=== PATIENT | female | born 1965 | race American Indian/Alaskan Native ===

== ENCOUNTER 2017-11-23 07:08 | Outpatient (CLI) | payer BC ==
--- NOTE | 2017-11-23 09:16 | Ultrasound Report ---
ULTRASOUND ABDOMEN LIMITED: TECHNIQUE: Transabdominal ultrasound with color Doppler interrogation. HISTORY: Elevated liver function tests. COMPARISON: none. FINDINGS: LIVER: The right hepatic lobe appears mildly enlarged. There is diffuse increased echogenicity consistent with diffuse fatty infiltration. No focal liver mass or surface nodularity is identified. BILIARY SYSTEM: Normal. PANCREAS: Normal. RIGHT KIDNEY: Normal size, contour and position. Normal echogenicity. A 1.5 cm cyst is noted near the superior pole. A 3.1 cm cyst is noted near the inferior pole. No hydronephrosis or nephrolithiasis is appreciated. PROXIMAL AORTA: Normal. ASCITES: None. IMPRESSION: Borderline to mild hepatomegaly. Mild diffuse fatty infiltration throughout the liver. Simple right renal cysts.
== END 2017-11-23 07:09 | disposition home or self-care (01) ==
LOC: US 07:08
PROVIDERS: ATTEND Family Medicine Adult Medicine
DX: Z12.31 Encounter for screening mammogram for malignant neoplasm of breast (principal); K76.0 Fatty (change of) liver, not elsewhere classified; N28.1 Cyst of kidney, acquired; R79.89 Other specified abnormal findings of blood chemistry
CPT/HCPCS: 76705; 77067

== ENCOUNTER 2018-11-25 07:20 | Outpatient (CLI) | payer BC ==
--- NOTE | 2018-11-25 07:55 | Mammography Report ---
Bilateral mammogram: Compared to 11/23/17. CAD study utilized. Findings: Predominance of adipose tissue bilaterally. Bilateral benign densities. Benign calcifications. Normal axilla Impression: Benign findings. Annual followup recommended. BI-RADS CATEGORY: 2 = Benign ACR BI-RADS MAMMOGRAPHIC CODES: 0 = Needs additional imaging evaluation; 1 = Negative; 2 = Benign; 3 = Probably benign; 4 = Suspicious; 5 = Malignant; 6 = Known biopsy-proven malignancy COMMENT: 1. Dense breast tissue, i.e., adenosis, fibrocystic changes, etc., may obscure an underlying neoplasm. 2. Approximately 10% of cancers are not detected with mammography. 3. A negative mammography report should not delay biopsy if a clinically suspicious mass is present. COMMENT: Patient follow-up letters are generated in [email or web address].
== END 2018-11-25 07:21 | disposition home or self-care (01) ==
LOC: MAMMO 07:20
PROVIDERS: ATTEND Family Medicine Adult Medicine
DX: Z12.31 Encounter for screening mammogram for malignant neoplasm of breast (principal); K76.0 Fatty (change of) liver, not elsewhere classified; R94.5 Abnormal results of liver function studies; I10 Essential (primary) hypertension; J45.909 Unspecified asthma, uncomplicated
CPT/HCPCS: 77067

== ENCOUNTER 2020-02-19 06:12 | Outpatient (CLI) | payer BC ==
--- NOTE | 2020-02-19 08:41 | Cat Scan Report ---
CT chest, abdomen, and pelvis without contrast INDICATION : R10.84Generalized abdominal pain/R07.9 CHEST PAIN. TECHNIQUE: Noncontrast technique was performed.. All CT scans at this location are performed using CT dose reduction for ALARA by means of automated exposure control. COMPARISON: CT abdomen from 05/14/2009 FINDINGS: Chest: Heart and great vessels appear normal except for mild dilatation of the ascending thoracic ao rta measuring up to 4.3 cm in maximal transverse dimension on image #46 of series 2. The measurement was taken in a plane perpendicular to the axis of the aortic arch. No pathologic mediastinal adenopat hy. The lungs are clear. No acute osseous abnormality. Abdomen/pelvis: The liver is mildly enlarged with no focal mass identified. The gallbladder, spleen, pancreas, adrenals, left kidney, and proximal GI tract appear unremarkable. Ventral abdominal wall h ernia repair change is present with a recurrent fat-containing hernia just above the level of the umb ilicus as seen on images 69-77 of series #3. There is nonobstructive nephrolithiasis in the mid to lower pole the right kidney measuring 3 mm. The re is also what appears to be a parapelvic cyst in the right kidney. No ureteral stone or convincing hydronephrosis. Urinary bladder and reproductive organs are unremarkable except for slightly lobulated appearance of the uterus which could reflect changes of fibroid disease. No pelvic free fluid. No acute colonic abn ormality identified. The appendix is normal. There are degenerative changes throughout the spine and pelvis with no acute osseous abnormality iden tified. IMPRESSION: 1. No acute abnormality identified. 2. Incidental findings as above including mild aneurysmal dilatation of the ascending thoracic aorta. Signer Name: Cedric Mendoza MD Signed: 02/19/2020 8:37 AM Workstation Name: [id number]
== END 2020-02-19 06:13 | disposition home or self-care (01) ==
LOC: CT 06:12
PROVIDERS: ATTEND Family Medicine Adult Medicine
DX: I71.2 Thoracic aortic aneurysm, without rupture (principal); R10.84 Generalized abdominal pain; M47.814 Spondylosis without myelopathy or radiculopathy, thoracic region
CPT/HCPCS: 71250; 74176

== ENCOUNTER 2020-10-06 07:23 | Outpatient (CLI) | payer BC ==
--- NOTE | 2020-10-06 08:58 | Mammography Report ---
DIGITAL SCREENING MAMMOGRAM WITH CAD, 10/06/2020 INDICATION: Routine screening mammography. TECHNIQUE: Digital bilateral 2D mammography was obtained in the craniocaudal and mediolateral obliq ue projections. This examination was interpreted with the benefit of Computer-Aided Detection analysi s. COMPARISON: 06/21/2011 FINDINGS: Breast Density: The breasts are almost entirely fatty. There is no evidence of dominant mass, suspicious calcifications or architectural distortion in eithe r breast. Scattered bilateral nodularity unchanged. IMPRESSION: Follow up recommendation: Routine yearly BI-RADS Category 2: Benign. A "normal" or negative report should not discourage follow up or biopsy of a clinically significant f inding. A written summary of these findings will be mailed to the patient. The patient will be entered into a mammography reporting system which will generate a reminder letter for the patient's next appointmen t at the appropriate interval. The [employer] recommends yearly mammograms starting at age 40 and continuing as l louie as a woman is in good health. Breast MRI is recommended for women with an approximate 20-25% or greater lifetime risk of breast cancer, including women with a strong family history of breast or ova jerome cancer or who have been treated for Hodgkin's disease. Signer Name: Malick Muller MD Signed: 10/06/2020 8:53 AM Workstation Name: [id number]
== END 2020-10-06 07:24 | disposition home or self-care (01) ==
LOC: MAMMO 07:23
PROVIDERS: ATTEND Family Medicine Adult Medicine
DX: Z12.31 Encounter for screening mammogram for malignant neoplasm of breast (principal); N64.89 Other specified disorders of breast
CPT/HCPCS: 77067